=== PATIENT | male | born 1960 | race Caucasian/White ===

== ENCOUNTER 2018-05-06 15:08 | Emergency (ER) | payer OTHER ==
[2018-05-06] MEDS ORDERED: Acetaminophen/Codeine 30-300mg Tablet ONE (15:57)
--- NOTE | 2018-05-06 17:00 | RAD ---
RIGHT FOREARM TWO VIEWS: 05/06/2018 HISTORY: Injury to right forearm. FINDINGS: No fracture or dislocation seen involving the right forearm. Radiopaque densities seen overlying the most distal forearm. No other findings. IMPRESSION: No acute osseous abnormality, right forearm. POS: [facility]
--- NOTE | 2018-05-06 17:01 | RAD ---
RIGHT ELBOW FOUR VIEWS: HISTORY: Injury. TECHNIQUE: AP, lateral, and both oblique views of the right elbow are obtained. FINDINGS: Four views of the right elbow demonstrate no evidence of right elbow fractures, subluxations, or bony lesions. IMPRESSION: Unremarkable four views right elbow. POS: [facility]
--- NOTE | 2018-05-06 17:06 | RAD ---
LEFT SHOULDER THREE VIEWS: 05/06/2018 HISTORY: Injury. Pain. COMPARISON: None available. FINDINGS: There is stable widening of the acromioclavicular interspace when compared to chest x-ray from 2017. Incompletely imaged transvenous pacing device present. No acute fracture or evidence of dislo cation. IMPRESSION: Chronic findings, as detailed above. Findings may be related to prior left shoulder surgery or prior acromioclavicular joint injury. No acute findings are noted. POS: [facility]
== END 2018-05-06 16:45 ==
LOC: NAV ERS 15:08
DX: S46.221A Laceration of muscle, fascia and tendon of other parts of biceps, right arm, initial encounter (principal); M79.631 Pain in right forearm; I25.10 Atherosclerotic heart disease of native coronary artery without angina pectoris; E03.9 Hypothyroidism, unspecified; I10 Essential (primary) hypertension; G40.909 Epilepsy, unspecified, not intractable, without status epilepticus; F25.9 Schizoaffective disorder, unspecified; Z79.899 Other long term (current) drug therapy; Z79.82 Long term (current) use of aspirin; Z86.73 Personal history of transient ischemic attack (TIA), and cerebral infarction without residual deficits; W17.89XA Other fall from one level to another, initial encounter